=== PATIENT | female | born 1960 ===

== ENCOUNTER 2020-01-26 06:42 | Day surgery (SDC) | payer MEDICARE, MEDICAID ==
[~2020-01-26] VITALS: Ht 152.4 cm; Wt 52.4 kg
[2020-01-26] MEDS ORDERED: MEVACOR10 MG PO (07:31)
[2020-01-26] MEDS ORDERED: CYMBALTA 30MG30 MG PO (07:32)
[2020-01-26] MEDS ORDERED: DESYREL 50MG50 MG PO (07:33)
[2020-01-26] MEDS ORDERED: ATIVAN 1MG T1 MG/TAB PO (07:33)
[2020-01-26] MEDS ORDERED: D3-5050000 IU PO (07:34)
[2020-01-26] MEDS ORDERED: NEURONTIN300 MG/CAP PO (07:34)
[2020-01-26] MEDS ORDERED: GLUCOPHAGE500 MG/TAB PO (07:34)
[2020-01-26] MEDS ORDERED: PRINIVIL5 MG PO (07:34)
[2020-01-26] MEDS ORDERED: VOLTAREN GEL 1%1 TU TP (07:35)
[2020-01-26 07:36] VITALS: BP 117/77; PULSE 85; TEMP 98.4
[2020-01-26 09:05] VITALS: BP 102/58; PULSE 81; TEMP 97.4
--- NOTE | 2020-01-26 09:05 | NUR ---
Pt to GI bay 2 via cart from [facility]. Pt drowsy, but awake. Pt ambulates to recliner with stand by assist x2. Warm blankets provided. Friend in room. Pt denies pain or nausea. Water and applesauce provided per pt request. Will continue to monitor. Call light within reach.
[2020-01-26 09:20] VITALS: BP 104/69; PULSE 68
--- NOTE | 2020-01-26 09:20 | NUR ---
Pt tolerating food and po fluids without difficulties. Denies needs. Call light within reach.
[2020-01-26 09:35] VITALS: BP 91/60; PULSE 71
--- NOTE | 2020-01-26 09:35 | NUR ---
Pt continues to rest. Denies needs. Call light within reach.
[2020-01-26 09:50] VITALS: BP 96/62; PULSE 60
--- NOTE | 2020-01-26 09:50 | NUR ---
Pt resting. Denies needs. Call light within reach.
--- NOTE | 2020-01-26 10:05 | NUR ---
Discharge instructions reviewed. Pt voices understanding. IV site discontinued with all parts intact. Pt up to dress. Call light within reach.
--- NOTE | 2020-01-26 10:20 | NUR ---
Pt escorted to private car via wheel chair. Pt accompanied home by her friend.
== END 2020-01-26 10:20 | disposition home or self-care (01) ==
LOC: SDCO 06:42
DX: K21.9 Gastro-esophageal reflux disease without esophagitis (principal); K29.30 Chronic superficial gastritis without bleeding; Z91.041 Radiographic dye allergy status; F41.9 Anxiety disorder, unspecified; E11.9 Type 2 diabetes mellitus without complications; F32.9 Major depressive disorder, single episode, unspecified; E78.00 Pure hypercholesterolemia, unspecified; K76.0 Fatty (change of) liver, not elsewhere classified; Z90.49 Acquired absence of other specified parts of digestive tract; Z90.710 Acquired absence of both cervix and uterus; Z20.828 Contact with and (suspected) exposure to other viral communicable diseases
CPT/HCPCS: J2250; J3010; J7030